=== PATIENT | female | born 1975 ===

== ENCOUNTER 2017-09-21 14:14 | Emergency (ER) | payer OTHER ==
[2017-09-21 14:18] VITALS: O2SAT 100
[2017-09-21 15:27] LABS: SQUAMOUS EPITHIAL 1 /hpf (0-5); URINE BILIRUBIN NEGATIVE (NEGATIVE); URINE BLOOD 3+ (NEGATIVE); URINE CLARITY Clear (Clear); URINE COLOR Straw (YELLOW); URINE GLUCOSE (UA) NORMAL (Normal); URINE LEUKOCYTE ESTERASE NEG Leu/uL (Negative); URINE PROTEIN NEGATIVE (NEGATIVE); URINE UROBILINOGEN NORMAL mg/dL (0.2-1.0)
[2017-09-21 16:18] LABS: BASO % 0.6 % (0.0-2.0); EOS # 0.2 K/uL (0.0-0.7); EOS % 2.9 % (0.0-4.0); HEMOGLOBIN 14.1 g/dL (11.0-16.0); LYMPH # 2.1 K/uL (1.0-4.3); LYMPH % 30.1 % (20.0-40.0); MEAN CELL VOLUME 92.4 fL (81.0-99.0); MEAN CORPUSCULAR HGB CONC 33.5 g/dL (33.0-37.0); MEAN PLATELET VOLUME 8.3 fL (7.2-11.7); MONO # 0.6 K/uL (0.0-0.8); NEUT # 4.1 K/uL (1.8-7.0); NEUT % 58.4 % (50.0-75.0); NRBC % 0.1 % (0.0-2.0); RBC 4.56 Mil/uL (3.80-5.20); WHITE BLOOD COUNT 6.9 K/uL (4.8-10.8)
--- NOTE | 2017-09-21 16:31 | C.PDOC ---
History Of Present Illness 42 y/o female with one month hx of intermittent, though becoming more frequent, poking type right upper quadrant pain that radiates towards back. pt unclear if pain is food related. pt has not received any medical care for this pain. denies fever, chills, nausea, vomiting, diarrhea, constipation. denies any change in appetite. denies any urinary symptoms. Time Seen by Provider: 09/21/17 14:59 Chief Complaint (Nursing): Abdominal Pain History Per: Patient History/Exam Limitations: no limitations Onset/Duration Of Symptoms: Days (30), Intermittent Episodes, Worse Since (few days ago) Current Symptoms Are (Timing): Still Present Severity: Mild Location Of Pain/Discomfort: RUQ Radiation Of Pain To:: Flank Quality Of Discomfort: Other (poking) Associated Symptoms: denies: Fever, Chills, Nausea, Vomiting, Diarrhea, Loss Of Appetite, Urinary Symptoms Abnormal Vaginal Bleeding: No Past Medical History Reviewed: Historical Data, Nursing Documentation, Vital Signs Vital Signs: Last Vital Signs Temp 98.1 F 09/21/17 17:33 Pulse 71 09/21/17 17:33 Resp 18 09/21/17 17:33 BP 139/85 09/21/17 17:33 Pulse Ox 100 09/22/17 11:01 - Medical History PMH: No Chronic Diseases Family History: States: Unknown Family Hx - Social History Hx Tobacco Use: No Hx Alcohol Use: No Hx Substance Use: No - Immunization History Hx Tetanus Toxoid Vaccination: No Hx Influenza Vaccination: No Hx Pneumococcal Vaccination: No Review Of Systems Constitutional: Negative for: Fever, Chills Gastrointestinal: Positive for: Abdominal Pain. Negative for: Nausea, Vomiting , Diarrhea Genitourinary: Negative for: Dysuria Skin: Negative for: Rash Neurological: Negative for: Weakness, Numbness Physical Exam - Physical Exam Appears: Non-toxic, No Acute Distress Skin: Warm, Dry Head: Atraumatic, Normacephalic Eye(s): bilateral: Normal Inspection Oral Mucosa: Moist Neck: Supple Cardiovascular: Rhythm Regular Respiratory: No Decreased Breath Sounds, No Wheezing Gastrointestinal/Abdominal: Bowel Sounds, Soft, Tenderness (ruq), No Distention , No Guarding, No Rebound Back: No CVA Tenderness Extremity: Normal ROM, No Pedal Edema Neurological/Psych: Oriented x3, Normal Speech, Normal Cognition ED Course And Treatment - Laboratory Results Result Diagrams: 09/21/17 16:19 09/21/17 16:22 O2 Sat by Pulse Oximetry: 100 Medical Decision Making Medical Decision Makin female with ruq pain x 1 month- labs, ruq sono, ua upreg. eval for gall stones 1728 pt with normal labs, neg us for gall or kidney stones on right side. pt with hematuria; is menstruating. d/c home with outpatient clinic f/u Disposition Counseled Patient/Family Regarding: Studies Performed, Diagnosis, Need For Followup - Disposition Referrals: [facility] [Outside] Disposition: HOME/ ROUTINE Disposition Time: 17:29 Condition: GOOD Additional Instructions: Por favor haz un seguimiento en la clnica mdica. Mantenga un diario cuando tenga hector dolor y las circunstancias que lo rodean y trigalo a landrum estelle de seguimiento clnica. Regrese a la payal de emergencias por cualquier sntoma peor. Please follow up in medical clinic. Please keep diary when you have this pain and the circumstances surrounding it and bring with you to your clinic follow up appointment. Return to ER for any worse symptoms. Instructions: Flank Pain, Acute Abdomen (Belly Pain), Adult (DC) Forms: Gen Discharge Inst Greek, Yo (Greek) Print Language: ARABIC - Clinical Impression Clinical Impression: Abdominal pain
[2017-09-21 16:39] LABS: ALB/GLOB RATIO 1.3 (1.0-2.1); ALBUMIN 4.7 g/dL (3.5-5.0); ALT/SGPT 27 U/L (9-52); AST/SGOT 29 U/L (14-36); BLOOD UREA NITROGEN 14 mg/dL (7-17); CALCIUM 9.3 mg/dl (8.6-10.4); GFR AFRICAN-AMERICAN > 60; GFR NON-AFRICAN AMERICAN > 60; LIPASE 107 U/L (23-300)
--- NOTE | 2017-09-21 17:09 | US ---
HISTORY: ruq pain COMPARISON: None. TECHNIQUE: Sonographic evaluation of the right upper quadrant of the abdomen. FINDINGS: LIVER: Measures 12.5 cm in length. Normal echogenicity of the liver parenchyma. No mass. No intrahepatic bile duct dilatation. A Reba's lobe is seen at the inferior margins right lobe. GALLBLADDER: Gallbladder is contracted. No cholelithiasis related. COMMON BILE DUCT: Measures 3.0 mm. No stones. No dilatation. PANCREAS: Unremarkable as visualized. No mass. No ductal dilatation. RIGHT KIDNEY: Measures 8.9 cm in length. Normal echogenicity. No calculus, mass, or hydronephrosis. AORTA: No aneurysmal dilatation. IVC: Unremarkable. OTHER FINDINGS: None . IMPRESSION: Unremarkable right upper quadrant abdomen ultrasound examination.
[2017-09-21 17:34] VITALS: BP 139/85; PULSE 71; RESP 18; TEMP 98.1
== END 2017-09-21 18:20 | disposition home or self-care (01) ==
LOC: C.ER 14:14
DX: R10.11 Right upper quadrant pain (principal)
CPT/HCPCS: 76705; 80053; 81001; 83690; 85025; 96374; 99285; J1885